=== PATIENT | female | born 1965 ===

== ENCOUNTER 2018-05-02 05:56 | Observation (INO) | payer BC ==
[2018-04-24 12:00] VITALS: BMI 24.1
[2018-05-02] MEDS ORDERED: Propofol 10 mg/ml Inj (20 ML) ONE (07:16)
[2018-05-02] MEDS ORDERED: Succinylcholine 200 mg/10 ml Inj IV ONE (07:16)
[2018-05-02] MEDS ORDERED: Rocuronium 10 mg/ml (5 ml) ONE ×2 (07:16→10:53)
[2018-05-02] MEDS ORDERED: Midazolam 2 MG/2 ML VIAL ONE (07:16)
[2018-05-02] MEDS ORDERED: ePHEDrine 50 mg/ml Inj ONE (07:16)
[2018-05-02 07:18] LABS: HEMOGLOBIN 10.4 g/dL (12.0-16.0); MEAN CELL VOLUME 84.2 fl (81.0-99.0); MEAN CORPUSCULAR HEMOGLOBIN 27.9 pg (27.0-31.0); MEAN CORPUSCULAR HGB CONC 33.1 g/dL (33.0-37.0); RBC 3.73 Mil/uL (3.80-5.20); RED CELL DISTRIBUTION WIDTH 14.2 % (11.5-14.5); WHITE BLOOD COUNT 5.1 K/uL (4.8-10.8)
[2018-05-02] MEDS ORDERED: Lactated Ringer's 1,000 ML IV ONE ×3 (07:18→12:29)
[2018-05-02] MEDS ORDERED: Phenylephrine 10 mg/ml Inj ONE ×2 (07:19→07:32)
[2018-05-02] MEDS ORDERED: Lidocaine 2% MPF (5 ml) Inj ONE (07:21)
[2018-05-02] MEDS ORDERED: Sodium Chloride 0.9% 10 ML IV ONE (07:28)
[2018-05-02 07:35] LABS: BLOOD UREA NITROGEN 14 mg/dl (7-17); CALCIUM 8.8 mg/dL (8.4-10.2); GFR NON-AFRICAN AMERICAN > 60
[2018-05-02] MEDS ORDERED: Bupivacaine 0.5% Inj(30mL) ONE (07:39)
[2018-05-02] MEDS ORDERED: SULFANILAMIDE (AVC) VAG CREAM VG ONE ×2 (07:40→10:28)
[2018-05-02] MEDS ORDERED: Neostigmine 1:1000 (1 mg/ml) Inj ONE (08:03)
[2018-05-02] MEDS ORDERED: Sevoflurane - Inhalation Anesthetic Liq (250 ml) ONE (09:02)
[2018-05-02] MEDS ORDERED: Morphine 1 mg/ml preservative-free Inj(Duramorph) ONE (09:23)
[2018-05-02] MEDS ORDERED: Esmolol 100 mg/10ml Inj IV ONE (09:26)
[2018-05-02] MEDS ORDERED: Bupivacaine 0.5% 50 ML IJ ONE ×2 (09:38)
[2018-05-02] MEDS ORDERED: HEMOSTATIC MATRIX 10 ML DIS.NEEDLE TOP ONE (10:25)
[2018-05-02] MEDS ORDERED: Dexamethasone 4 mg/1 ml ONE (10:56)
[2018-05-02] MEDS ORDERED: Liquid Adhesive TOP ONE (12:03)
[2018-05-02] MEDS ORDERED: Naloxone 0.4 mg/ml Inj (Adult) IVP PRN (12:32)
--- NOTE | 2018-05-02 12:40 | PCM.SURG1 ---
Surgeon's Initial Post Op Note - Surgeon's Notes Surgeon: Dr. Salgado Sander And Polisher: Dr Bravo Type of Anesthesia: General Endo Anesthesia Administered By: Dr. Fisher Pre-Operative Diagnosis: 52 yo with Chronic pelvic pain, postmenopausal bleeding, Fibroid uterus and failure of medical therapy Operative Findings: Av uterus 18-20 wks gestation with multiple fibroid Post-Operative Diagnosis: Same as above Operation Performed: Robotoic hysterectomy/ Cystoscopy/ Ureteral stents Specimen/Specimens Removed: Cervix, Uterus and fibroids Estimated Blood Loss: EBL {In ML}: 150 Blood Products Given: N/A Drains Used: No Drains Post-Op Condition: Good Date of Surgery/Procedure: 05/02/18 Time of Surgery/Procedure: 12:41
[2018-05-02] MEDS: HYDROmorphone 0.5 mg/0.5 ml ISec IVP PRN ×4 (12:48→14:05)
[2018-05-02] MEDS: Sodium Chloride 0.9% 1,000 ML IV SCH (16:21)
[2018-05-02] MEDS: cefOXitin 2 GM in Sodium Chloride 0.9% 100 ML IVPB SCH (16:21)
[2018-05-03] MEDS: cefOXitin 2 GM in Sodium Chloride 0.9% 100 ML IVPB SCH ×2 (00:02→09:55)
[2018-05-03] MEDS: Sodium Chloride 0.9% 1,000 ML IV SCH (02:05)
[2018-05-03 07:23] LABS: HEMOGLOBIN 9.7 g/dL (12.0-16.0); MEAN CELL VOLUME 85.1 fl (81.0-99.0); MEAN CORPUSCULAR HEMOGLOBIN 28.4 pg (27.0-31.0); MEAN CORPUSCULAR HGB CONC 33.4 g/dL (33.0-37.0); RBC 3.43 Mil/uL (3.80-5.20); RED CELL DISTRIBUTION WIDTH 14.1 % (11.5-14.5); WHITE BLOOD COUNT 10.5 K/uL (4.8-10.8)
[2018-05-03 07:39] LABS: BLOOD UREA NITROGEN 7 mg/dl (7-17); CALCIUM 8.4 mg/dL (8.4-10.2); GFR NON-AFRICAN AMERICAN > 60
[2018-05-03] MEDS: Oxycodone/Acetaminophen 5/325 mg Tab PO PRN ×2 (13:09→20:10)
[2018-05-04 01:36] VITALS: RESP 20
[2018-05-04] MEDS: Oxycodone/Acetaminophen 5/325 mg Tab PO PRN (04:24)
[2018-05-04 04:51] VITALS: O2SAT 99
[2018-05-04 09:31] VITALS: BP 127/68; PULSE 92; TEMP 97.5
--- NOTE | 2018-06-02 09:28 | OP ---
PROCEDURE DATE: PREOPERATIVE DIAGNOSES: Symptomatic uterine fibroids, postmenopausal bleeding, and chronic pelvic pain. POSTOPERATIVE DIAGNOSES: Symptomatic fibroids, chronic pelvic pain, evidence of endometriosis, and endopelvic adhesions. OPERATION PERFORMED: Robotic total hysterectomy, lysis of adhesions, and cystoscopy. SURGEON: Grace Salgado MD GENERAL HARDWARE SALESPERSON: TYPE OF ANESTHESIA: General. ESTIMATED BLOOD LOSS: Approximately 150 mL. COMPLICATIONS: None. DESCRIPTION OF PROCEDURE: The patient was informed of the risk factors, benefits, and alternatives of the procedure. Risk factors included infection, bleeding, damage to surrounding organs and tissue as well as possible blood transfusion, complication from anesthesia, and possible . All questions were answered prior to performing the surgical procedure. Once the informed consent was obtained, she was then taken to the operating room, prepped and draped in normal sterile fashion, placed in dorsal lithotomy position. In that particular instance, a Lynch catheter was placed into the vagina. A weighted speculum was placed into the vagina. A single tooth-tenaculum was utilized and placed in the anterior lip of the cervix. The cervical os was then dilated with Ricky dilators. In that particular instance, the VCare device was utilized and sized medium in order to manipulate the uterine cavity. Once that was completed, attention was then turned to the abdomen which a supraumbilical incision was made with a scalpel and a Veress needle was placed in the abdominal cavity. Through the Veress needle, carbon dioxide was insufflated until the pseudopneumoperitoneum was obtained. The Veress needle was then removed and supraumbilical incision was extended. An 8 mm trocar and sleeve were then placed in the abdominal cavity without any difficulty. The trocar was removed, and the robotic laparoscopy was placed in the abdominal cavity. The pelvic vessels were examined. There were no injuries to the organs. Survey of the uterine cavity was then perfused. The uterus was extremely diffusely enlarged with multiple leiomyomas noted. The right and the left ovaries appeared normal. There were multiple implants. It looked like evidence of endometriosis that clinically corresponds to basically the chronic pelvic pain. Then the ports were put into the abdominal cavity under direct visualization. The certified dental assistant point was placed just beneath the ribs and the left upper quadrant of the abdomen. Da Jass robot was then docked with the surgical ports, and the left arm was placed with the device and the right with hot scissors. In that particular instance, the left ovarian ligament was isolated and cauterized with three consecutive areas with the PK. The same was done on the right. Excellent hemostasis was noted. The round ligament on the left side was cauterized and cut. The left side of the vesicouterine peritoneum was then excised forming the left side of the bladder flap. The left uterine vascularization was then isolated and cauterized. In that particular instance then the right ovary; now attention was then turned to the right side of which the right ovary was visualized which appeared to be looked okay. There were some adhesions. Lysis of adhesions were then performed carefully. Excellent hemostasis was noted. The lysis of adhesion was used with the PK. The ovarian ligament was cauterized at three consecutive times with the PK and the right round ligament was also cauterized with the PK. Excellent hemostasis was noted. The vesicouterine peritoneum on the right side was excised forming the right side of the bladder. The bladder was then pushed down off the lower uterine segment without any difficulty. The uterine vascularization on the right side was then cauterized. The vein was identified anterior and then anterior colpotomy was then performed. The uterine vascularization was cauterized bilaterally prior to performing the anterior colpotomy, and there was excellent hemostasis. After complete circumferential the scissors from the vaginal cuff, the uterus, and the cervix was delivered through the vagina, and the vaginal cuff was then closed with running V-Loc sutures. Excellent hemostasis was noted. The pelvis was irrigated with copious amount of normal saline. Hemostasis was found to be secured. The FloSeal was placed at the cuff. The 12 mm subumbilical surgical port was removed, and the incision was closed in layers. The fascia was closed with 2-0 Vicryl. All the surgical ports were then removed under direct visualization and that indigo was given intravenously. A cystoscopy was then performed. Both ureteral orifices were identified. There was noted to be blue dye from both ureteral orifices. No injury to the bladder was noted. The Lynch was then placed back into the bladder and then the remaining of the incisions were closed with 3-0 Monocryl. All sponge and needle counts were correct x2. The patient was then taken to recovery room in stable condition. She tolerated the procedure well. Grace Salgado MD [facility] # [id number]
== END 2018-05-04 14:00 | disposition home or self-care (01) ==
LOC: H.OPSURG 05:56 → H.PEDS 12:43
PROVIDERS: ADMIT Obstetrics & Gynecology; ATTEND Obstetrics & Gynecology
DX: D25.9 Leiomyoma of uterus, unspecified (principal); N73.6 Female pelvic peritoneal adhesions (postinfective); G89.29 Other chronic pain; N95.0 Postmenopausal bleeding; R10.2 Pelvic and perineal pain; N72 Inflammatory disease of cervix uteri
CPT/HCPCS: 36415; 52000; 58570; 80048; 85027; 86850; 86900; 88307; 94770; 96361; 96365; 96375; 96376; C2615; G0378; J0131; J0330; J0690; J0694; J1100; J1170; J1885; J2001; J2250; J2270; J2370; J2405; J2704; J2710; J2765; J3010; J7030; J7120; S2900